=== PATIENT | female | born 2000 | race Caucasian/White ===

== ENCOUNTER 2022-10-15 03:26 | Emergency (ER) | payer OTHER ==
[2022-10-15] MEDS ORDERED: Benzocaine 20% Spray 60 ML CAN PO SCH (04:00)
== END 2022-10-15 04:24 | disposition home or self-care (01) ==
LOC: CSHERS 03:26
DX: K04.7 Periapical abscess without sinus (principal); F17.210 Nicotine dependence, cigarettes, uncomplicated
CPT/HCPCS: 99282